=== PATIENT | male | born 1990 | race Hispanic/Latino ===

== ENCOUNTER 2017-08-25 12:35 | Emergency (ER) | payer SELFPAY ==
[2017-08-25] MEDS ORDERED: Adacel (T-DAP) 0.5 ML VIAL ONE (12:50)
--- NOTE | 2017-08-25 13:38 | RAD ---
THREE VIEWS OF THE LEFT SMALL FINGER: Comparison: None. History: Finger fracture. FINDINGS: Three views of the left small finger shows a fracture along the dorsal aspect of the PIP joint of the finger. There is subluxation of the PIP joint in a volar direction. Soft tissue swelling is seen. IMPRESSION: Fracture, subluxation of the PIP joint of the small finger. POS: [facility]
[2017-08-25] MEDS ORDERED: Ketorolac Tromethamine 60 MG/2 ML VIAL ONE (13:46)
[2017-08-25] MEDS ORDERED: Cephalexin 250 MG CAP ONE (17:13)
== END 2017-08-25 17:57 | disposition home or self-care (01) ==
LOC: ERS 12:35
DX: S62.617A Displaced fracture of proximal phalanx of left little finger, initial encounter for closed fracture (principal); S62.002A Unspecified fracture of navicular [scaphoid] bone of left wrist, initial encounter for closed fracture; W22.8XXA Striking against or struck by other objects, initial encounter
CPT/HCPCS: 29125; 90471; 90715; 96372; J1885

== ENCOUNTER 2017-08-28 14:20 | Outpatient (CLI) | payer SELFPAY ==
[2017-08-28 15:57] LABS: #Basophils 0.1 thou/uL (0.0-0.2); #Eosinphils 0.4 thou/uL (0.0-0.7); #Lymphocytes 1.7 thou/uL (1.20-3.40); #Monocytes 0.3 thou/uL (0.11-0.59); %Basophils 1.4 % (0.0-1.0); %Eosinophils 6.7 % (0.0-10.0); %Lymphocytes 30.8 % (21.0-51.0); %Monocytes 5.9 % (0.0-10.0); %Neutrophils 55.3 % (42.0-75.0); Hemoglobin 15.2 g/dL (14.0-18.0); Mean Corpuscular HGB CONC 34.7 g/dL (32.0-36.0); Mean Corpuscular Hemoglobin 30.9 pg (27.0-31.0); Mean Platelet Volume 7.9 fL (7.4-10.4); Platelet Count 281 thou/uL (130-400); RBC Distribution Width 11.4 % (11.5-14.5); Red Blood Cell (RBC) Count 4.92 mill/uL (4.70-6.10); White Blood Cell (WBC) Count 5.4 thou/uL (4.8-10.8)
== END 2017-08-28 14:21 | disposition home or self-care (01) ==
LOC: LABBT 14:20
PROVIDERS: ATTEND Orthopaedic Surgery Hand Surgery
DX: Z01.812 Encounter for preprocedural laboratory examination (principal); S62.657A Nondisplaced fracture of middle phalanx of left little finger, initial encounter for closed fracture; S63.237A Subluxation of proximal interphalangeal joint of left little finger, initial encounter
CPT/HCPCS: 85025